=== PATIENT | female | born 1990 | race Caucasian/White ===

== ENCOUNTER → 2022-09-09 11:57 | Outpatient (CLI) | payer OTHER, SELFPAY ==
--- NOTE | ~2022-09-09 | US_ITS ---
EXAMINATION: US OB <= 14 weeks fetus DATE: 09/09/2022 12:19 INDICATION: Spotting during first trimester TECHNIQUE: Real-time pelvic transabdominal and transvaginal ultrasound was performed. COMPARISON: None. FINDINGS: The uterus measures 10.7 x 8.1 x 8.6 cm. There is an intrauterine gestational sac. A yolk sac is identified. heart motion is identified measuring 182 beats per minute (bpm) by M-mode Do ppler. The crown rump length measures 2.3 cm, which correlates with an estimated gestational ag e of 9 weeks and 0 day(s) (+/-) 6 day(s). The right ovary is not visualized however no right adnexal abnormality is seen. The left ovary measur es 2.1 x 1.2 x 2.4 cm. There is normal vascular flow in the left ovary. There is no free fluid in the pelvis. IMPRESSION: 1. Live intrauterine with an estimated gestational age of 9 weeks and 0 day(s) (+/-) 6 day( s) and an estimated delivery date of 04/14/2023. 2. No sonographic correlate for the patient's symptoms. Reviewed, dictated and finalized at location B. [employer] ENGINEER IMPRESSION: 1. Live intrauterine with an estimated gestational age of 9 weeks and 0 day(s) (+/-) 6 day(s) and an estimated delivery date of 04/14/2023. 2. No sonographic correlate for the patient's symptoms.
== END ==
PROVIDERS: PCP Internal Medicine; Visit Provider Advanced Practice Midwife
DX: O26.851 Spotting complicating pregnancy, first trimester (principal); Z3A.09 9 weeks gestation of pregnancy
CPT/HCPCS: 76801

== ENCOUNTER → 2022-11-10 15:46 | Outpatient (CLI) | payer OTHER, SELFPAY ==
--- NOTE | ~2022-11-10 | US_ITS ---
EXAMINATION: US OB /maternal detail DATE: 11/10/2022 16:39 INDICATION: Encounter for screening, unspecified. TECHNIQUE: Real-time ultrasound of the pelvis was performed. COMPARISON: Ultrasound 09/09/2022 FINDINGS: There is a single living fetus in breech presentation. The placenta is anterior, 7.2 cm from the cer vix. The cervical length is 3.1 cm on transabdominal images, which is normal. heart rate is 154 beats per minute (bpm). The amniotic fluid volume is subjectively normal. The following biometric data were obtained: Biparietal diameter (BPD): 4.1 cm; head circumference (HC): 14.9 cm; abdominal circumference (AC): 12 .4 cm; femur length (FL): 2.4 cm. These measurements are concordant. Estimated weight is 204 g +/- 31 g, which correlates with the 33rd percentile when 04/14/23 is u sed as estimated date of delivery. As single measurements, these parameters are each equal to the following estimated gestational ages: BPD: 18 weeks 2 days. HC: 18 weeks 0 days. AC: 18 weeks 0 days. FL: 17 weeks 1 days. estimated gestational age based solely on measurements from this exam is 17 weeks 6 days +/- 1 weeks 2 days. The cerebral ventricles, cerebellum, cisterna magna, nuchal fold, and visualized portions of the spin e are normal. The heart is normal. The diaphragm, kidneys, and bladder are normal. The stomach is not visualized. There are two umbilical arteries to yield a 3-vessel cord. The cord insertion is normal. IMPRESSION: 1. Single living fetus in breech presentation. 2. Estimated weight is 204 g +/- 31 g, which correlates with the 33rd percentile when 04/14/23 is used as estimated date of delivery. This date was set by ultrasound on 09/09/2022. 3. stomach not visualized. Otherwise normal anatomic survey. Reviewed, dictated and finalized at location A. IMPRESSION: 1. Single living fetus in breech presentation. 2. Estimated weight is 204 g +/- 31 g, which correlates with the 33rd pe rcentile when 04/14/23 is used as estimated date of delivery. This date was set by ultrasound on 09/09/2022. 3. stomach not visualized. Otherwise normal anatomic survey.
== END ==
PROVIDERS: PCP Obstetrics & Gynecology Gynecology; Visit Provider Obstetrics & Gynecology Gynecology
DX: Z36.9 Encounter for antenatal screening, unspecified (principal); Z3A.17 17 weeks gestation of pregnancy
CPT/HCPCS: 76805

== ENCOUNTER → 2022-12-14 15:53 | Outpatient (CLI) | payer OTHER, SELFPAY ==
--- NOTE | ~2022-12-14 | US_ITS ---
US OB limited 12/14/2022 16:14 Indication: survey. Stomach not visualized on prior examination. Procedure: Limited obstetrical ultrasound using transabdominal technique Comparison: Comparison to multiple prior studies sequentially, with oldest reviewed study dated 09/09. Findings: There is a single living intrauterine in breech presentation. Placenta is anterio r measuring 8.1 cm to the cervix. Amniotic fluid is subjectively normal. Left-sided stomach is noted without abnormality. heart rate 147 BPM. Impression: 1: Single living intrauterine in breech presentation. 2: Normal stomach. Reviewed, dictated and finalized at location A. Impression: 1: Single living intrauterine in breech presentation. 2: Normal stomach.
== END ==
PROVIDERS: PCP Obstetrics & Gynecology Gynecology; Visit Provider Obstetrics & Gynecology Gynecology
DX: Z36.2 Encounter for other antenatal screening follow-up (principal)
CPT/HCPCS: 76815

== ENCOUNTER → 2023-03-08 15:16 | Outpatient (CLI) | payer OTHER, SELFPAY ==
--- NOTE | ~2023-03-08 | US_ITS ---
EXAMINATION: US OB follow up DATE: 03/08/2023 15:49 INDICATION: Size greater than dates. Third trimester. TECHNIQUE: Real-time ultrasound of the pelvis was performed. COMPARISON: Ultrasound 12/14/2022, 09/09/2022 FINDINGS: There is a single living fetus in vertex presentation. The placenta is anterior. heart rate is 124 beats per minute (bpm). The amniotic fluid index is 17.2 cm, which is normal. The following biometric data were obtained: Biparietal diameter (BPD): 8.5 cm; head circumference (HC): 30.6 cm; abdominal circumference (AC): 30 .6 cm; femur length (FL): 6.7 cm. These measurements are concordant. Estimated weight is 2432 g +/- 365 g, which correlates with the 38th percentile when 04/14/23 is used as estimated date of delivery. As single measurements, these parameters are each equal to the following estimated gestational ages: BPD: 34 weeks 2 days. HC: 34 weeks 0 days. AC: 34 weeks 4 days. FL: 34 weeks 3 days. estimated gestational age based solely on measurements from this exam is 34 weeks 2 days +/- 2 weeks 3 days. IMPRESSION: 1. Single living fetus in vertex presentation. 2. Estimated weight is 2432 g +/- 365 g, which correlates with the 38th percentile when 3 is used as estimated date of delivery. This date was set by ultrasound on 09/09/2022. Reviewed, dictated and finalized at location E. IMPRESSION: 1. Single living fetus in vertex presentation. 2. Estimated weight is 2432 g +/- 365 g, which correlates with the 38th percentile when 04/14/23 is used as estimated date of delivery. This date was se t by ultrasound on 09/09/2022.
== END ==
PROVIDERS: PCP Obstetrics & Gynecology Gynecology; Visit Provider Obstetrics & Gynecology Gynecology
DX: O36.63X0 Maternal care for excessive fetal growth, third trimester, not applicable or unspecified (principal); Z3A.34 34 weeks gestation of pregnancy
CPT/HCPCS: 76816

== ENCOUNTER 2023-04-08 06:38 | Inpatient (IN) | payer OTHER, SELFPAY ==
[2023-04-08] VITALS (96 sets, daily range): BP systolic 89–159; BP diastolic 33–119; PULSE 56–138; RESP 16; TEMP 36.1–37.4; O2SAT 96–100; BMI 34.1
--- NOTE | 2023-04-08 06:59 | LDADM ---
This patient, Marline Celestin, was admitted to Labor/Delivery/Recovery 105 on 04/08/23 at 06:38. Plans for labor, pain management and were discussed with patient. Patient/family oriented to hospital policies and general routines including ID bracelet, bed and alarms, visiting hours, pain management, procedures, bathroom and other care routines, personal items, smoking policy, room service/diet and guest tray routines, infant security routines, and visiting hours. Patient/Family are encouraged to report perceived risks to care and to ask questions if they do not understand what they are told or what they should do. See OBIX for further documentation.
[2023-04-08] MEDS: CALCIUM CARBONATE (TUMS) 500 MG (200 MG ELEMENTAL) PO (07:30)
[2023-04-08] MEDS: OXYTOCIN 30 UNITS/NS 500 ML 30 UNITS/500 ML BAG IV CONT (07:33)
[2023-04-08] MEDS: LACTATED RINGERS 1,000 ML 125 ML IV CONT (07:33)
--- NOTE | 2023-04-08 07:44 | WPDOBADMIT ---
Obstetrics - Admit Note Admission Note: record reviewed. No pertinent additions to the history and/or any subsequent changes in the physical findings that are not consistent with the expected course of the were found. Additions to the history and/or subsequent changes in the physical findings follow. Here for MIL at 39. Cervix 5/80/-2 AROM with clear fluid. FHTs cat 1
[2023-04-08 08:00] LABS: Basophils Percent Auto 0.2 % (0.2-1.2); Eosinophils Percent Auto 0.5 % (0-4.4); Hematocrit 34.3 % (37.0-47.0); Hemoglobin 11.8 g/dL (12.0-15.0); Immature Granulocyte Percent A 1.1 % (0-0.5); Immature Platelet Fraction Pct 7.4 % (0.9-11.2); Lymphocytes Absolute Auto 1.54 K/mm3 (0.9-3.2); Lymphocytes Percent Auto 17.5 % (18.3-44.2); Mean Corpuscular HGB Conc 34.4 g/dl (32-36); Mean Corpuscular Hemoglobin 32.7 pg (26-34); Mean Platelet Volume 10.5 fl (7.4-10.4); Monocytes Absolute Auto 0.8 K/mm3 (0.1-0.6); Monocytes Percent Auto 9.1 % (2.6-8.5); Neutrophils Absolute Auto 6.3 K/mm3 (1.3-6.7); Neutrophils Percent Auto 71.6 % (45.5-73.1); Platelet Count Result 140 k/mm3 (150-375); Red Blood Count 3.61 M/mm3 (4.2-5.4); Red Cell Distribution Width 14.7 % (11.5-14.5); White Blood Count 8.8 K/mm3 (4.5-10.0)
--- NOTE | 2023-04-08 12:39 | PM.OBPRVD ---
OB - Delivery Note Procedure Delivery date: 04/08/23 Procedure: Events: Other (39 wk MIL) Induction method: AROM and Per Pitocin Protocol Delivery monitor: External FHT and External Uterine Route of delivery: Laceration Description: Perineal - 2nd Degree Delivery repair: vicryl (3-0) Specimen: No Quantitative Blood Loss (ml): 200 Anesthesia type: Epidural Disposition: Floor Baby Date of : 04/08/23 Weeks of gestation at delivery: 39 Infant gender: Male presentation: vertex position: Right Occiput Anterior Placenta delivery description: Spontaneous Cord Vessel Description: 3 Vessels score one minute: 9 score five minutes: 9
--- NOTE | 2023-04-08 12:40 | PM.OBDSVD ---
DS: Admitting Diagnosis Discharge Date 04/09/23 Admitting Diagnosis IUP 39 wks for DIO DS: Discharge Diagnosis Discharge Diagnosis (1) (normal spontaneous vaginal delivery): Code(s): O80 - Encounter for full-term uncomplicated delivery Status: Acute OB - DS: Summary OB Procedures : Ultrasound OB Procedures Intrapartum: Spontaneous Vag Delivery OB Procedures: : None Peripartum Data Infant Delivery Method: Natural Vaginal Laceration Description: Perineal - 2nd Degree complications: none Status at Discharge Functional status at discharge: independent ambulation Overall status at discharge: patient is progressing back to baseline Time Spent with Patient Time attestation: Total time spent providing and/or coordinating discharge services: DS: Data Data Completed and Pending Labs on day of discharge: Labs from last 24 hours 04/08/23 04/08/23 06:49 06:48 WBC 8.8 RBC 3.61 L Hgb 11.8 L Hct 34.3 L MCV 95.0 MCH 32.7 MCHC 34.4 RDW 14.7 H Plt Count 140 L MPV 10.5 H Immature Gran % (Auto) 1.1 H Neut % (Auto) 71.6 Lymph % (Auto) 17.5 L [place] % (Auto) 9.1 H Eos % (Auto) 0.5 Baso % (Auto) 0.2 Lymph # (Auto) 1.54 [place] # (Auto) 0.8 H Eos # (Auto) 0.0 Baso # (Auto) 0.0 Abs Immat Gran (auto) 0.10 H Absolute Neuts (auto) 6.3 Absolute Nucleated RBC 0.0 Nucleated RBC % 0.0 % Immature Plt Fraction 7.4 RPR Pending Blood Type A Positive Antibody Screen Negative Discharge Plan Discharge Attending physician on discharge: Lashell Ambriz Discharging Clinician: Lashell Ambriz Anticipated Discharge Date/Time: 04/09/23 12:41 Patient Disposition: Home, Self-Care Activity: may shower and pelvic rest Diet: regular Patient Instructions: Antibiotic Form Stand Alone Forms: General Discharge Information Follow-up/Referrals: Lashell Ambriz MD [Physician] - 6 Weeks Discharge Medications: New norethindrone (contraceptive) 0.35 mg tablet 0.35 mg PO DAILY Qty: 84 3RF Continued #2 Tablet 1 tablet Date of admission: 04/08/23 06:38 Primary Care Provider: PHYSICIAN,DIAMOND GRADER Admitting Provider: Lashell Ambriz Attending physician on admission: Lashell Ambriz Condition: Stable
[2023-04-08] MEDS: OXYTOCIN 30 UNITS/NS 500 ML 30 UNITS/500 ML BAG 125 UNITS IV CONT (12:49)
--- NOTE | 2023-04-08 13:16 | WPDANESEPPF ---
Anes - Initial Pre Proc Eval Date/Time: 04/08/23 13:16 Surgeon: Lashell Ambriz MD Pre Op Diagnosis: Induction of Labor Patient Data Age: 32 Gender: F Height: 1.65 m Weight: 93 kg Last Vital Signs Temp 36.9 C 04/08/23 12:18 Pulse 87 04/08/23 13:15 BP 148/85 H 04/08/23 13:15 Pulse Ox 100 04/08/23 12:19 O2 Del Method Room Air 04/08/23 06:58 Allergies Allergy/AdvReac Type Severity Reaction Status Date / Time No Known Allergies Verified 10/15/10 03:48 Home Medications Medication Instructions Recorded Confirmed Type prenat.vits,marcy,akw-scug-ohvkk 1 tablet 03/20/23 History Laboratory Tests 04/08/23 04/08/23 06:48 06:49 WBC 8.8 K/mm3 (4.5-10.0) RBC 3.61 L M/mm3 (4.2-5.4) Hgb 11.8 L g/dL (12.0-15.0) Hct 34.3 L % (37.0-47.0) MCV 95.0 fl (80-100) MCH 32.7 pg (26-34) MCHC 34.4 g/dl (32-36) RDW 14.7 H % (11.5-14.5) Plt Count 140 L k/mm3 (150-375) MPV 10.5 H fl (7.4-10.4) Immature Gran % (Auto) 1.1 H % (0-0.5) Neut % (Auto) 71.6 % (45.5-73.1) Lymph % (Auto) 17.5 L % (18.3-44.2) [place] % (Auto) 9.1 H % (2.6-8.5) Eos % (Auto) 0.5 % (0-4.4) Baso % (Auto) 0.2 % (0.2-1.2) Lymph # (Auto) 1.54 K/mm3 (0.9-3.2) [place] # (Auto) 0.8 H K/mm3 (0.1-0.6) Eos # (Auto) 0.0 K/mm3 (0-0.3) Baso # (Auto) 0.0 K/mm3 (0.0-0.1) Abs Immat Gran (auto) 0.10 H K/mm3 (0.00-0.031) Absolute Neuts (auto) 6.3 K/mm3 (1.3-6.7) Absolute Nucleated RBC 0.0 K/mm3 (0.0-0.012) Nucleated RBC % 0.0 % (0.0-0.2) % Immature Plt Fraction 7.4 % (0.9-11.2) RPR Pending Blood Type A Positive Antibody Screen Negative Patient hx anesthesia problems: none Family hx anesthesia problems: none Results Review: All pre-operative results and documents have been reviewed as part of the pre-operative evaluation. [facility] Family History Family History Mother Diabetes mellitus Grandparent Diabetes mellitus Social History Social History Smoking status: Never smoker Substance use: never Lack of Transportation: No Lack of Food: Never True Current Housing: I Have Housing Concerned About Future Housing: No Difficulty Paying Gas/Electric Bills: No Difficulty Paying for Meds: No Currently Unemployed: No Education: Don't Know Difficulty w/ Childcare or Family Care: No Spiritual care concerns: No Anes - Eval Final PreProcedure Day of Procedure 04/08/23 13:16 Patient weight: obese Neurological: alert and oriented ASA classification: II Emergent: no Anesthetic plan: proceed Anesthesia type and monitoring: regional epidural and standard monitoring Results Review: All pre-operative results and documents have been reviewed as part of the pre-operative evaluation. Informed Consent: The patient's anesthetic plan and its attendant risks and benefits were discussed with the patient/family/POA. Questions were solicited and answers provided to the satisfaction of the patient/family/POA.
[2023-04-08] MEDS: WITCH HAZEL 40 PADS 1 PAD TOPICAL (14:33)
[2023-04-08] MEDS: BENZOCAINE 20% AER SPR (*SP) 56 GM CAN 1 SPRAY TOPICAL (14:33)
--- NOTE | 2023-04-08 16:53 | OBPPTRN ---
1507-Patient transferred to post room #284 via wheelchair. Support person present. Oriented to unit, room, information board, rooming in, admission packet and security measures. Patient verbalizes understanding.
[2023-04-08] MEDS: ACETAMINOPHEN 325 MG TABLET 650 MG PO (23:30)
[2023-04-08] MEDS: IBUPROFEN 600 MG TABLET PO (23:31)
[2023-04-09 03:41] VITALS: BP 130/78; PULSE 69; RESP 16; TEMP 36.5; O2SAT 100
[2023-04-09 04:06] LABS: Hematocrit 28.8 % (37.0-47.0)
[2023-04-09 07:45] VITALS: BP 133/87; PULSE 82; RESP 16; TEMP 36.9; O2SAT 99
--- NOTE | 2023-04-09 07:54 | PM.OBPNVD ---
OB - PN: Subj Subjective Date/time seen: 04/09/23 07:54 Patient comments: no complaints and pain well controlled baby status: doing well and nursing well OB - PN: Obj Data Labs 04/09/23 03:58 Labs: Laboratory Results - last 24 hr 04/08/23 04/08/23 04/09/23 06:48 06:49 03:58 WBC 8.8 RBC 3.61 L Hgb 11.8 L 10.0 L Hct 34.3 L 28.8 L MCV 95.0 MCH 32.7 MCHC 34.4 RDW 14.7 H Plt Count 140 L MPV 10.5 H Immature Gran % (Auto) 1.1 H Neut % (Auto) 71.6 Lymph % (Auto) 17.5 L [place] % (Auto) 9.1 H Eos % (Auto) 0.5 Baso % (Auto) 0.2 Lymph # (Auto) 1.54 [place] # (Auto) 0.8 H Eos # (Auto) 0.0 Baso # (Auto) 0.0 Abs Immat Gran (auto) 0.10 H Absolute Neuts (auto) 6.3 Absolute Nucleated RBC 0.0 Nucleated RBC % 0.0 % Immature Plt Fraction 7.4 Blood Type A Positive Antibody Screen Negative OB - PN A/P Plan day: 1 Plan: routine care, discharge home, follow up 6 weeks and other (micronor for bc) Time Spent With Patient Time: Total time spent is greater than 50% in coordination of care (as documented) at patient's floor/unit and/or counseling patient: Exam : Bimanual exam- vagina & uterus: other (Uterus firm, nt @U)
--- NOTE | 2023-04-09 10:16 | WPDANLDPN2 ---
Anes-Prog Note L&D Date/Time: 04/09/23 10:16 Comfortable throughout: labor and delivery Neuraxial method: epidural Epidural/Spinal procedure site: clean & non-tender Neuro status: Neuro function grossly intact. Cardiovascular status: normal Respiratory status: normal Airway patency: baseline Mental status: baseline Post-Op hydration status: normal Vital Signs: Last Vital Signs Temp 36.9 C 04/09/23 07:45 Pulse 82 04/09/23 07:45 Resp 16 04/09/23 07:45 BP 133/87 04/09/23 07:45 Pulse Ox 99 04/09/23 07:45 O2 Del Method Room Air 04/08/23 15:50 Pain score (VAS): 2/10 Post-procedural complaints: none Patient feedback: Patient satisfied with anesthetic care.
--- NOTE | 2023-04-09 10:26 | WPDANLDPN2 ---
Anes-Prog Note L&D Date/Time: 04/09/23 10:26 Comfortable throughout: labor and delivery Neuraxial method: epidural Epidural/Spinal procedure site: clean & non-tender Neuro status: Neuro function grossly intact. Cardiovascular status: normal Respiratory status: normal Airway patency: baseline Mental status: baseline Post-Op hydration status: normal Vital Signs: Last Vital Signs Temp 36.9 C 04/09/23 07:45 Pulse 82 04/09/23 07:45 Resp 16 04/09/23 07:45 BP 133/87 04/09/23 07:45 Pulse Ox 99 04/09/23 07:45 O2 Del Method Room Air 04/08/23 15:50 Pain score (VAS): 0 Post-procedural complaints: none Patient feedback: Patient satisfied with anesthetic care.
[2023-04-09] MEDS: MULTIVIT/MIN/PREN/FOL AC/IRON TABLET 1 TAB PO (10:41)
[2023-04-09 11:01] LABS: Rapid Plasma Reagin Non-Reactive (NonReactive)
[2023-04-09 12:05] VITALS: BP 128/88; PULSE 91; RESP 18; TEMP 36.6; O2SAT 99
--- NOTE | 2023-04-09 14:28 | PC.NURSE ---
[id number] Introductions were made, then consulted with patient to assess needs related to . Mother led the conversation with her?plans to feed?her , the?experience so far and declining assistance. Resources provided for inpatient and outpatient services with the feeding sheet, mom/baby guide and name written on the white board. Mother voiced understanding of information and will call if there is a request for assistance. Reported to the primary RN.
[2023-04-09] MEDS: IBUPROFEN 600 MG TABLET PO (19:06)
[2023-04-09] MEDS: ACETAMINOPHEN 325 MG TABLET 650 MG PO (19:06)
--- NOTE | 2023-04-09 20:30 | PC.NURSE ---
Patient instructed to view the discharge video Mother & Baby Care, The First Two Weeks . Patient was given the opportunity and encouraged to ask questions. Patient verbalized understanding of information shared and has been given the mother/baby guide for home reference.
[2023-04-09 20:45] VITALS: BP 134/70; PULSE 80; RESP 18; TEMP 36.6
[2023-04-09] MEDS: CALCIUM CARBONATE (TUMS) 500 MG (200 MG ELEMENTAL) 400 MG (23:40)
[2023-04-10] MEDS: CALCIUM CARBONATE (TUMS) 500 MG (200 MG ELEMENTAL) (03:21)
[2023-04-10 08:15] VITALS: BP 136/91; PULSE 88; RESP 16; TEMP 36.7; O2SAT 99
--- NOTE | 2023-04-10 08:43 | PM.OBPNVD ---
OB - PN: Subj Subjective Date/time seen: 04/10/23 08:43 Patient comments: pain well controlled, tolerating diet and other (Decreasing lochia.) baby status: doing well and nursing well [place] feeding status: exclusively breast feeding OB - PN: Obj Data Labs 04/09/23 03:58 Labs: Laboratory Results - last 24 hr 04/08/23 06:49 RPR Non-reactive OB - PN A/P Assessment and Plan (1) (normal spontaneous vaginal delivery): Code(s): O80 - Encounter for full-term uncomplicated delivery Status: Acute Plan day: 2 Plan: discharge home and other Comments: Patient doing well. Follow up 4-6 weeks. Discharge instructions provided. Time Spent With Patient Time: Total time spent is greater than 50% in coordination of care (as documented) at patient's floor/unit and/or counseling patient: Time with patient: less than 15 minutes Exam Psych: Affect: normal affect Other: Abd: fundus firm below umbilicus, nontender Ext: nontender
[2023-04-10] MEDS: MULTIVIT/MIN/PREN/FOL AC/IRON TABLET 1 TAB PO (08:47)
[2023-04-10] MEDS: IBUPROFEN 600 MG TABLET PO (08:47)
[2023-04-12 11:18] VITALS: BP 137/73; PULSE 77; RESP 18; TEMP 37.1; O2SAT 99
== END 2023-04-10 13:45 | disposition home or self-care (01) | DRG 807 ==
LOC: ANHLDR 12:41 → ANHOB2 04-10 09:29 → ANHLDR 04-12 13:19 → ANHOB2 04-12 13:19
PROVIDERS: Admitting Provider Obstetrics & Gynecology Gynecology; Visit Provider Obstetrics & Gynecology
DX: O99.12 Other diseases of the blood and blood-forming organs and certain disorders involving the immune mechanism complicating childbirth (principal); Z37.0 Single live birth; Z3A.39 39 weeks gestation of pregnancy; D69.6 Thrombocytopenia, unspecified; O70.1 Second degree perineal laceration during delivery
CPT/HCPCS: 36415; 85014; 85018; 85025; 85055; 86592; 86850; 86900; 86901; A9270; J2590; J2795; J7120

== ENCOUNTER 2024-08-06 21:26 | Emergency (ER) | payer OTHER, SELFPAY ==
[2024-08-06 21:44] VITALS: BP 101/87; PULSE 90; RESP 15; TEMP 36.6; O2SAT 99
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
[2024-08-06] MEDS: IBUPROFEN 400 MG TABLET 800 MG PO (22:35)
[2024-08-06] MEDS: ACETAMINOPHEN 500 MG TABLET 1000 MG PO (22:35)
[2024-08-06] MEDS: methocarbamoL 750 MG TABLET PO (22:36)
== END 2024-08-06 23:30 | disposition home or self-care (01) ==
PROVIDERS: Emergency Provider Emergency Medicine
DX: S16.1XXA Strain of muscle, fascia and tendon at neck level, initial encounter (principal); V43.52XA Car driver injured in collision with other type car in traffic accident, initial encounter
CPT/HCPCS: 99283; A9270